=== PATIENT | male | born 1945 | race Two or more races ===

== ENCOUNTER 2020-08-23 04:40 | Day surgery (SDC) | payer OTHER ==
[~2020-08-23 04:40] MED LIST: ADULT LOW DOSE81 M1 PO; ATORVASTATIN CA10 MG PO
== END 2020-08-23 17:35 | disposition home or self-care (01) ==
LOC: CIR.AMB 04:40
PROVIDERS: ATTEND Specialist
DX: K40.90 Unilateral inguinal hernia, without obstruction or gangrene, not specified as recurrent (principal); Z20.822 Contact with and (suspected) exposure to COVID-19

== ENCOUNTER → 2022-08-29 07:16 | Outpatient (CLI) | payer OTHER | END | disposition home or self-care (01) | LOC: LAB 07:16 | PROVIDERS: ATTEND Urology | DX: C61 Malignant neoplasm of prostate (principal) ==

== ENCOUNTER → 2023-09-09 06:58 | Outpatient (CLI) | payer OTHER ==
[2023-09-09 07:32] LABS: PH,URINE 7.5 (5.0-8.0); URINE APPEARANCE Clear; URINE BILIRRUBIN Negative (NEGATIVE); URINE BLOOD Negative; URINE COLOR Yellow; URINE GLUCOSE Negative (NEGATIVE); URINE LEUKOCYTE Negative; URINE NITRATE Negative; URINE PROTEIN Negative (NEGATIVE); URINE RBC 20.8 uL (0.0-20.8); URINE UROBILINOGEN 0.2 E.U./dl
[2023-09-09 07:34] LABS: URINE BACTERIA 0 uL (0.0-1933); URINE EPITHELIAL CELLS 0.7 uL (0.0-38.8); URINE WBC 0.7 uL (0.0-23.2)
== END | disposition home or self-care (01) ==
LOC: LAB 06:58
PROVIDERS: ATTEND Urology
DX: C61 Malignant neoplasm of prostate (principal)